=== PATIENT | male | born 1985 | race Caucasian/White ===

== ENCOUNTER 2025-02-16 11:25 | Emergency (ER) | payer BC, SELFPAY ==
--- NOTE | ~2025-02-16 | XR_ITS ---
EXAM/PROCEDURE: XR chest 2V - 02/16/2025 12:23 CDT HISTORY: 39 years old Male with cough, congestion; wheeze TECHNIQUE: Two view(s) of the chest. COMPARISON: None available. FINDINGS: LUNGS/ PLEURA: No focal consolidation. Mild perihilar bronchial wall thickening. Multiple bilateral s ubcentimeter pulmonary nodules seen. HEART/ MEDIASTINUM: Heart appears normal in size. BONES: No acute osseous abnormality. OTHER: Visualized upper abdomen is unremarkable. IMPRESSION: 1. No focal consolidation. Mild perihilar bronchial wall thickening, findings suggestive of respirat ory bronchiolitis. 2. Multiple bilateral subcentimeter nodules seen. These may represent granulomas. Correlate with raji or imaging if available otherwise routine outpatient CT chest can be performed for further evaluation as clinically indicated. Reviewed, dictated and finalized at location A. IMPRESSION: 1. No focal consolidation. Mild perihilar bronchial wall thickening, findings suggestive of respiratory bronchiolitis. 2. Multiple bilateral subcentimeter nodules seen. These may represent granulom as. Correlate with prior imaging if available otherwise routine outpatient CT c hest can be performed for further evaluation as clinically indicated.
--- OUTSIDE RECORDS SUMMARY | 2025-02-16 11:28 | XMS_ITS | Encounter Summary ---
Author Organization [facility] Address [address] [place] [address] Care Team Providers Care Game Manager Name Role Phone Zuly Bruner MD Primary Care Provider Edu Stover MD Unavailable [phone] Encounter Details Date Type Department Care Team (Late st Contact Info) Description 04/10/2021 Hospital Orders Only [facility] Anesthesia [address] [place] [address] [facility] Anesthesia Record Procedure Summary Procedure Name Responsible Anesthesiologist Anesthesia Start Time Anesthesia Stop Time XA A-FIB ABLATION Todd De Jesus MD 04/14/21 0704 04/14/21 0947 Events Date Time Event Comment 04/14/2021 0654 0654 AN Anesthesia Prepped 0704 An Start Patient ID and consent checked and patient reassessed. 0704 An Start Data 0708 Preoxygenation 0710 An Induction The patient was reevaluated immediately before moderate or deep sedation use and before anesthesia induction. 0714 An Intubation 0723 Anesthesia Ready 0826 Quick Note ACT 268 0839 Quick Note Act 290 0918 Quick Note ACT 301 0942 An Extubation 0946 an stop data 0947 Post Anesthetic Care Handoff I completed my handoff to the receiving nurse during which we: 1. Identified the patient 2. Identified the responsible provider 3. Reviewed the pertinent medical history 4. Discussed the surgical course 5. Reviewed intra-op anesthesia management and issues during anesthesia 6. Set expectations for post-procedure period 7. Allowed opportunity for questions and acknowledgement of understanding. 0947 An Stop Meds * Agents No agents on file. * Blood No blood administrations on file. Lines, Drains, and Airways Type Details Placement Removal Peripheral IV Placement Date: 06/27; Placement Time: 615; Placed Outside of This Facility?: No; Size: 18 G; Orientation: Left; Location: Antecubital; Site Prep: Alcohol; Local Anesthetic: None; Inserted By: jimy romero; Insertion attempts: 1; Ultrasound-guided Placement?: No; Patient Tolerance: Tolerated well; Removal Date: 04/15/21; Removal Time: 943; Removal Reason: Patient Discharged 04/14/21615 by Diane Abbott RN 04/15/21943 by Zuleima Meehan RN ETT Placement Date: 06/27; Placement Time: 714; Placed Outside of This Facility?:No; Mask Ventilate: Prior to intubation, Easy; Size (mm) : 7.5; Endotracheal: Oral, Stylet used; Blade Type: MAC 4; Placement Method: Direct Laryngoscopy (blade type in comment); View Grade: 1; Viewable Anatomy: Epiglottis, Arytenoid, Vocal cords; Insertion Attempts: 1; Placement Verified By: Capnography, Auscultation, Chest Rise; Placed By: Other (Comment) (paulino ryan); Removal Date: 04/14/21; Removal Time: 94104/14/21714 by Yana Mauricio CRNA 04/14/21941 by Yana Mauricio CRNA Peripheral IV Placement Date: 06/27; Placement Time: 721; Placed Outside of This Facility?: No; Size: 18 G; Orientation: Left; Location: Hand; Site Prep: Alcohol; Local Anesthetic: None; Inserted By: daniela; Insertion attempts: 1; Ultrasound-guided Placement?: No; Patient Tolerance: Tolerated well; Removal Date: 12/19/22; Removal Time: 02304/14/21721 by Yana Mauricio CRNA 12/19/22 023 by Automatic Discharge Provider Arterial Line Placement Date: 06/27; Placement Time: 723 (created via procedure documentation); Placed Outside of This Facility?: No; Size: 20; Orientation: Right; Location: Radial; Site Prep: Chlorhexidine; Local Anesthetic: None; Insertion Attempts: 2; Patient Tolerance: Tolerated well; Removal Date: 04/14/21; Removal Time: 1100; Removal Reason: Therapy Completed 04/14/21 0724 by Todd De Jesus MD 04/14/21 1100 by Nano Cunha RN documented in this encounter Social History Tobacco Use Types Packs/Day Years Used Date Smoking Tobacco: Never Smokeless Tobacco: Former Alcohol Use Standard Drinks/Week Comments Yes 0 (1 standard drink = 0.6 oz pur e alcohol) occasional use Sex and Gender Information Value Date Recorded Sex Assigned at Male 01/11/2023 3:38 PM GROUNDS/MAINTENANCE SPECIALIST Legal Sex Male 10:29 PM CDT Gender Identity Male 01/11/2023 3:38 PM GROUNDS/MAINTENANCE SPECIALIST Sexual Orientation Straight 01/11/2023 3: 38 PM GROUNDS/MAINTENANCE SPECIALIST COVID-19 Exposure Response Date Recorded In the last month, have you been in contact with someone who was confirmed or suspected to have Coronavirus / COVID-19? No / Unsure 04/13/2021 9:18 AM CDT documented as of this encounter Plan of Treatment Not on file documented as of this encounter Visit Diagnoses Not on filedocumented in this encounter Additional Health Concerns Infection Onset Date Last Indicated Resolved Time COVID-19 Rule Out 04/13/2021 04/13/2021 04/13/2021 11:20 PM CDT documented as of this encounter Care Teams Game Manager Relationship Specialty Start Date End Date Zuly Bruner MD [address] [place] [address] PCP - General FAMILY PRACTICE 11/11/19 Edu Stover MD [address] [place] [address] EP Japanese Tutor CLINICAL CARDIAC ELECTROPHYSIOLOGY 11/25/20 documented as of this encounter
--- OUTSIDE RECORDS SUMMARY | 2025-02-16 11:28 | XMS_ITS | Encounter Summary ---
Author Organization [facility] Address [address] [place] [address] Care Team Providers Care Bench Shear Operator Name Role Phone Zuly Bruner MD Primary Care Provider Edu Stover MD Unavailable [phone] Encounter Details Date Type Department Care Team (Late st Contact Info) Description 12/24/2020 Hospital Orders Only [facility] Anesthesia [address] [place] [address] [facility] Anesthesia Record Procedure Summary Procedure Name Responsible Anesthesiologist Anesthesia Start Time Anesthesia Stop Time XA SVT WPW ABLATION Octaviano Guzman MD 12/26/20 0728 1018 Events Date Time Event Comment 12/26/2020 0704 0704 AN Anesthesia Prepped 0728 An Start Patient ID and consent checked and patient reassessed. 0728 An Start Data 0730 Face Mask Applied 0733 Anesthesia Ready 1008 an stop data 1018 Post Anesthetic Care Handoff I completed my handoff to the receiving nurse during which we: 1. Identified the patient 2. Identified the responsible provider 3. Reviewed the pertinent medical history 4. Discussed the surgical course 5. Reviewed intra-op anesthesia management and issues during anesthesia 6. Set expectations for post-procedure period 7. Allowed opportunity for questions and acknowledgement of understanding. 1018 An Stop Meds * Agents No agents on file. * Blood No blood administrations on file. Lines, Drains, and Airways Type Details Placement Removal Peripheral IV Placement Date: 12/08 07/28; Placement Time: 0653; Placed Outside of This Facility?: No; Size: 18 G; Orientation: Right; Location: Antecubital; Site Prep: Chlorhexidine; Local Anesthetic: None; Insertion attempts: 1; Ultrasound-guided Placement?: No; Patient Tolerance: Tolerated well; Removal Date: 12/26/20; Removal Time: 1024 12/26/20 0653 by Cheryl Moreau RN 12/26/20 1024 by Shaniec Hanley RN documented in this encounter Social History Tobacco Use Types Packs/Day Years Used Date Smoking Tobacco: Never Smokeless Tobacco: Former Alcohol Use Standard Drinks/Week Comments Yes 0 (1 standard drink = 0.6 oz pur e alcohol) occasional use Sex and Gender Information Value Date Recorded Sex Assigned at Male 01/11/2023 3:38 PM LABORATORY ASST Legal Sex Male 10:29 PM CDT Gender Identity Male 01/11/2023 3:38 PM LABORATORY ASST Sexual Orientation Straight 01/11/2023 3: 38 PM LABORATORY ASST COVID-19 Exposure Response Date Recorded In the last month, have you been in contact with someone who was confirmed or suspected to have Coronavirus / COVID-19? No / Unsure 12/26/2020 6:14 AM LABORATORY ASST documented as of this encounter Plan of Treatment Not on file documented as of this encounter Visit Diagnoses Not on filedocumented in this encounter Additional Health Concerns Infection Onset Date Last Indicated Resolved Time COVID-19 Rule Out 04/13/2021 04/13/2021 04/13/2021 11:20 PM CDT documented as of this encounter Care Teams Bench Shear Operator Relationship Specialty Start Date End Date Zuly Bruner MD [address] [place] [address] PCP - General FAMILY PRACTICE 11/11/19 Edu Stover MD [address] [place] [address] EP Center Customer Service Associate CLINICAL CARDIAC ELECTROPHYSIOLOGY 11/25/20 documented as of this encounter
--- OUTSIDE RECORDS SUMMARY | 2025-02-16 11:28 | XMS_ITS | Data Portability ---
Author Organization [facility] Main Office Address [address] [place] [address] Assessment No assessment recorded. Plan of Treatment Reminders Order Date Submit Date Provider Last Modified By Organization Details Last Modified Time Details Appointments None recorded. Lab None recorded. Referral None recorded. Procedures injection/a spiration joint/bursa (PROC) - in office procedure, administere d by provider 2022 023 [email or web address] In-Office Order, Internal Use Only DO Not Attach Compendium DO Not Attach Compendium, Do Not Delete/merge, [address] 14:27:34 Surgeries None recorded. Imaging None recorded. Medication Orders Kenalog 10 mg/mL suspension for injection 2022 023 [email or web address] Not available 14:36:39 ropivacaine (PF) 5 mg/mL (0.5 %) injection solution 2022 023 [email or web address] Not available 14:36:39 Patient TargetsNo targets recorded. Patient InstructionsNo instructions recorded. Reason for Referral None Reported. Results Created Date Observation Date Name Description Value Unit Range Abnormal Flag Note LastModifiedBy Organization Detail LastModifiedTime 01/27/2001/21/2023 MRI, elbow , w/o contr ast No observ ation record ed. [email or web address] Not Available 01/06 14:11:20 01/27/20 23 12/17/2022 XR, elbow , 3 or more view No observ ation record ed. [email or web address] Not Available 01/06 14:11:20 Result Notes None recorded. Problems Name Problem SNOMED Code Status Onset Date Resolution Date Notes Provider Name and Address Organization Details Recorded Time Olecranon bursitis 448520669 Active Not Available [employer] 15:41:19 Pain of right elbow joint 3659690826680 9109 Active 2022 JUANITA Hinojosa, [employer] 14:26:24 Lateral epicondyli tis of right humerus 5550513411741 07 Active 2022 Dieter Jauregui MD [address] [facility], [facility] [address], [place], [address] , [employer] 14:47:09 Problem Notes None recorded. Procedures Surgical History Date Name Laterality Status Provider Name and Address Organization Details Recorded Time Ablation completed JUANITA Rodriguez [employer] 01/31/2023 14:08:14 Vasectomy completed JUANITA Hinojosa [employer] 01/31/2023 14:09:51 Imaging Results Imaging Date Name Status LastModified by Organiz ation Details LastModified Time 01/21/2023 MRI, elbow, w/o contrast completed Information not available 01/26/2023 14:11:20 12/17/2022 XR, elbow, 3 or more view completed Information not available 01/26/2023 14:11:20 Procedure Notes None recorded. Medical Equipment None Reported. Allergies No known drug allergies Medications Name Sig Start Date Stop Date Status Note LastModified by Organization Details LastModified Time prednisone 20 mg tablet TAKE 3 TABLETS BY MOUTH DAILY X 3 DAYS, 2 TABS X 3 DAYS, 1 TAB X 3 DAYS, 1/2 TAB X 4 DAYS 01/31 completed Not Available Not Available Not Available Kenalog 10 mg/mL suspension for injection Take 2 mL by injection route. [address] [facility]: 0003- [phone]- [phone] Not Available Not Available Not Available ropivacaine (PF) 5 mg/mL (0.5 %) injection solution Take 2 mL by injection route. [address] [facility] [phone] Not Available Not Available Not Available Vitals Date Recorded Body height Body mass index (BMI) Body weight Provider Name and Address Organization Details Last Updated DateTime 01/31/2023 185.42 cm 36.9 kg/m2 502772.86 g Iraida Norman, RMA [facility] 01/31/2023 14:07:21 Date Recorded Body height Body mass index (BMI) Body weight Provider Name and Address Organization Details Last Updated DateTime 04/12/2023 185.42 cm 36.3 kg/m2 154100.9 JUANITA Pratt [facility] [employer] [facility] 04/12/2023 13:46:12 Social History Question Answer Notes LastModified by Organizat ion Details LastModified Time Tobacco Smoking Status Unknown If Ever Smoked JUANITA Rodriguez [facility] [employer] [facility] 01/31/2023 14:07:49 What Is Your Level Of Alcohol Consumption? Moderate [email or web address] Information not available 01/31/2023 What Was The Date Of Your Most Recent Tobacco Screening? 01/31/2023 [email or web address] Information not available 01/31/2023 Sex: Unknown Functional Status None recorded. Mental Status None recorded. Family History Nothing Reported. Medical History Condition Response CARDIAC ARRHYTHMIA Y CANCER: SPECIFY Y Past Encounters Encounter ID Performer Location Encounter Start Date Encounter Closed Date Diagnosis/Indication Diagnosis SNOMED-CT Code Diagnosis ICD10 Code Diagnosis Note [id number] Dieter Jauregui MD [facility]_[address], [address] [place] [phone] 01/31/2023 14:00:17 01/31/2023 14:46:23 Pain of right elbow joint 0127495324 4281003 M25.521 Lateral ep icondylitis of right humerus 1253483404 72178 M77.11 discussed the different treatment options. We did a 1 time diagnostic injection with 2 cc xylocaine 2 cc Kenalog starting standard protocol needling the damaged tendon and then withdrawin g sebastian causey to inject the medication away from the tendon itself. We will have him work on avoidance of overuse as well as stretching and deep friction massage and see him in 7 or 8 weeks for follow-up. If no improvemen t the next step would be physical therapy as 90% of these patients will heal in a 6 month to a year. With conservati [place] interventi on [id number] [facility] Aramis Howard [address] [place] [address] 04/12/2023 13:44:10 04/12/2023 14:05:13 Pain of right elbow joint 3696415044 1892412 M25.521 38-year-ol d male returns to the clinic concerning the lateral epicondyli tis of the right elbow. After steroid injection and home exercise program he has had significan t improvemen t of his pain but over the last 2 weeks he has been excessivel y using a hammer and has developed some medial epicondyli tis. we discussed that this is similar overuse injury to lateral epicondyli tis and treated the same way. We discussed possible treatment options including and activity modificati on, corticoste roid injection, surgical debridemen t. since his work will begin to slow down and he will not be excessivel y using hammer any more he elected to proceed with activity modificati on and home exercise program that he has already been doing. I advised him to be consistent with forearm stretching , eccentric exercises, friction massage. He may use topical NSAIDs as needed for localized anti-infla mmatory. He will follow up as needed if symptoms persist or worsen. Lateral ep icondylitis of right humerus 7414007807 25725 M77.11 Health Concerns Section Related Observation LastModified by Organization Detai ls LastModified Time None Recorded Concern Status LastModified by Organization Details LastModified Time None Recorded Advance Directives Directive None Recorded Payers Encounter Date Sequence Insurance Name Policy Number Policy Perry Covered Member ID Perry Member ID Guarantor Name 01/31/2023 1 [place] [id number] Shantanu Bee [id number] BY [id number] Shantanu Bee 04/12/2023 1 [place] [id number] Shantanu Feliciano Rohit [id number] BY [id number] Shantanu Bee Notes Date Note Type Note Provider Name and Address Organization Details Recorded Time 01/31/2023 text/html Presents today f or evaluation of an interstitial tear within his common extensor tendon consistent with lateral epicondylitis he works swinging a heavy hammer and has developed a pretty significant tendinopathy in his right elbow is referred in today for evaluation very sharp pain at times his MRI scan showed a bit of edema at the attachment of the extensor carpi radialis brevis and little bit of partial tearing in the common extensor he does not have any numbing or tingling just significant pain at his elbow Dieter Jauregui MD [address] [address], [place], [address], [facility] [employer] Scheduling Employee Scheduling [employer] [facility] 01/31/2023 14:48:01 04/12/2023 text/html 38-year-old male returns to clinic concerning right elbow lateral epicondylitis. At his last visit he received a corticosteroid injection and advised to perform forearm stretches, eccentric exercises and friction massage. he states that he had significant improvement of his pain in the lateral elbow but notice within the last 2 weeks he has had some mild discomfort in the medial elbow over the medial epicondyle. he states that he has been using hammer pretty frequently during this project at work. [facility] [address], [facility] [address], [place], [address], Maintenance Assistant [facility] 04/12/2023 14:14:43
--- OUTSIDE RECORDS SUMMARY | 2025-02-16 11:28 | XMS_ITS | Clinical Summary ---
Author Organization [facility] Address [address] [facility] [place] [address] Care Team Providers Care Textile Artist Name Role Phone Zuly Bruner MD Primary Care Provider Source Comments [facility],non-owned Affiliates and Associated Physician Practices is amultiple site organization consisting of ambulatory clinics and hospital sitesin [place], [place], [place] and [place]. This disclosure is being madepursuant to the Care Everywhere program and may not contain all information available regarding this patient. Last updated 18.[facility] Allergies No known active allergies Medications * Be aware that medications may not be up to date on this document. Alwaysverify current medications with the patient. traZODone (DESYREL) 50 MG tablet 11/02/2021 Active dexAMETHasone (DECADRON) 6 MG tablet Take 6 mg by mouth once daily 12/05/2021 Active dilTIAZem coated beads 24hr (CARDIZEM CD) 120 MG capsule 07/12/2021 Acti ve Active Problems Problem Noted Date Diagnosed Date Arthralgia of wrist 01/08/2022 Chest pain on breathing 01/08/2022 Shortness of breath 01/08/2022 Health examination of defined subpopulation 02/2022 Overview (01/08/2022): See DD 2216E. 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 pt was advised to quit but denies cessation at this time Obesity 01/08/2022 Other tenosynovitis of hand and wrist 01/08/2022 Other viral warts 01/08/2022 Overweight 01/08/2022 Pain of finger 01/08/2022 Overview (01/08/2022): xrays reviewed personally w/ radiologist reveal slight cortical irregularity 1st distal MC. as pt is tender in this area will place in thumb spica and reeval in 1 wk, sooner w/ any problems. rest, ice, nsaids. also, pt noted to have chnages at 5th prox ph Plantar wart 01/08/2022 Pleurisy 01/08/2022 Symptom of diarrhea 01/08/2022 S/P ablation of atrial fibrillation 05/13/2021 Paroxysmal atrial fibrillation 02/27/2021 SVT (supraventricular tachycardia) 02/27/2021 Malignant melanoma of other part of trunk 2016 Resolved Problems Problem Noted Date Diagnosed Date Resolved Date Cough 01/08/2022 02/05/2022 Gastroenteritis 01/08/2022 01/22/2022 Family History Medical History Relation Name Comments Heart Disease Brother 1 Status: Alive None Known Brother 2 Status: Alive None Known Daughter Status: Alive Fibromyalgia Father Hypertension Father Status: Alive Parkinson's Disease Father Cancer Maternal Grandfather Status: Leukemia Maternal Grandfather Heart Disease Maternal Grandmother Status : None Known Mother Status: Alive Cancer - Colon Paternal Grandfather Statu s: None Known Paternal Grandmother Status: None Known Son Status: Alive Relation Name Status Comments Brother 1 Brother 2 Daughter Father Maternal Grandfather Maternal Grandmother Mother Paternal Grandfather Paternal Grandmother Son Social History Tobacco Use Types Packs/Day Years Used Date Smoking Tobacco: Never Smokeless Tobacco: Former Chew Quit: 2018 Tobacco Cessation:Counseling Given: No Alcohol Use Standard Drinks/Week Comments Yes 1 (1 standard drink = 0.6 oz pur e alcohol) Sex and Gender Information Value Date Recorded Sex Assigned at Not on file Legal Sex Male 5:28 PM TASSEL MAKER Gender Identity Not on file Sexual Orientation Not on file Last Filed Vital Signs Vital Sign Reading Time Taken Comments Blood Pressure 133/87 10/11/2022 12:44 PM TASSEL MAKER Pulse 81 10/11/2022 12:44 PM TASSEL MAKER Temperature 37.1 C (98.7 F) 10/11/2022 12:44 PM TASSEL MAKER Respiratory Rate 18 10/11/2022 12:4 4 PM TASSEL MAKER Oxygen Saturation 98% 10/11/2022 12: 44 PM TASSEL MAKER Inhaled Oxygen Concentration - - Weight 121.8 kg (268 lb 9.6 oz) 022 12:44 PM TASSEL MAKER Height 185.4 cm (6' 1 ) 10/11/2022 12:4 4 PM TASSEL MAKER Body Mass Index 35.44 10/11/2022 12:44 PM TASSEL MAKER Plan of Treatment Health Maintenance Due Date Last Done Comments HIV SCREENING 2000 HEPATITIS C SCREENING 04/05/2003 DTAP/TDAP/TD VACCINES (1 - Tdap) 2004 HEPATITIS B VACCINE (1 of 3 - 19+ 3-dose series) 2004 COVID-19 VACCINE ( - season) 2024 DEPRESSION SCREENING 11/07/2024 INFLUENZA VACCINE (Season Ended) 2025 11/11/2020, 08/25/2019, 09/01/2018, Additional history exists ZOSTER VACCINE (1 of 2) 2035 HIB VACCINE Aged Out No longer eligi ble based on patient's age to complete this topic HPV VACCINE Aged Out No longer eligi ble based on patient's age to complete this topic MENINGOCOCCAL (Group B) VACCINE SHARED DECISION-MAKING Aged Out No longer eligible based on patient's age to complete this topic MENINGOCOCCAL GROUPS A/C/Y/W VACCINE Aged Out No longer eligible based on patient's age to complete this topic PNEUMOCOCCAL VACCINE Aged Out No long er eligible based on patient's age to complete this topic Insurance [employer] Care Teams Textile Artist Relationship Specialty Start Date End Date Zuly Bruner MD [address] [place] [address] PCP - General 11/29/16
--- OUTSIDE RECORDS SUMMARY | 2025-02-16 11:28 | XMS_ITS | Clinical Summary ---
Author Organization [facility] Address [address] [place] [address] Care Team Providers Care Epilepsy Physician Name Role Phone Zuly Bruner MD Primary Care Provider Edu Stover MD Unavailable [phone] Allergies No known active allergies Medications No known medications Active Problems Problem Noted Date Diagnosed Date S/P ablation of atrial fibrillation 05/13/2021 SVT (supraventricular tachycardia) ([facility]) Paroxysmal atrial fibrillation ([facility]) 02/27/2021 Immunizations Name Administration Dates Next Due Dtp 08/08/1990,02/14/1987,01/24/1986 ,1985,1985 Hepatitis B 01/12/2001,08/25/2000,07/14/2000 Influenza (Generic) 11/11/2020,08/25/2019,2017,08/18/2017 MMR 08/04/1993,07/22/1986 Opv 08/08/1990,02/14/1987,01/24/1986 ,1985,1985 Td 07/14/2000 Tdap (Adacel) 01/17/2020 Tdap (Boostrix) 11/03/2024(Deferred: - january 0 per record) Family History Medical History Relation Comments Hypertension Father Relation Status Comments Father Social History Tobacco Use Types Packs/Day Years Used Date Smoking Tobacco: Never Smokeless Tobacco: Former Alcohol Use Standard Drinks/Week Comments Yes 0 (1 standard drink = 0.6 oz pur e alcohol) occasional use Sex and Gender Information Value Date Recorded Sex Assigned at Male 01/11/2023 3:38 PM FILLER BLENDER Legal Sex Male 10:29 PM CDT Gender Identity Male 01/11/2023 3:38 PM FILLER BLENDER Sexual Orientation Straight 01/11/2023 3: 38 PM FILLER BLENDER Last Filed Vital Signs Vital Sign Reading Time Taken Comments Blood Pressure 137/95 11/03/2024 2:13 PM FILLER BLENDER Pulse 81 11/03/2024 2:13 PM FILLER BLENDER Temperature 36.6 C (97.8 F) 11/03/2024 2:13 PM FILLER BLENDER Respiratory Rate 18 11/03/2024 2:13 PM FILLER BLENDER Oxygen Saturation 98% 11/03/2024 2:13 PM FILLER BLENDER Inhaled Oxygen Concentration - - Weight 127 kg (280 lb) 11/03/2024 2:13 PM FILLER BLENDER Height 185.4 cm (6' 1 ) 11/03/2024 2:13 PM FILLER BLENDER Body Mass Index 36.94 11/03/2024 2:13 PM FILLER BLENDER Plan of Treatment Health Maintenance Due Date Last Done Comments Annual Physical 1988 Hepatitis C 2003 COVID-19 Vaccine ( season) 2024 DTaP, Tdap and Td Vaccines (3 - Td or Tdap) 01/16/2030 01/17/2020, 07/14/2000, 08/08/1990, Additional history exists Hepatitis B Vaccines Completed 01/12/2001, 08/25/2000, 07/14/2000 HPV Vaccines Aged Out No longer eligi ble based on patient's age to complete this topic Meningococcal B Vaccine Aged Out No l onger eligible based on patient's age to complete this topic Meningococcal Vaccine Aged Out No dimitrios simi eligible based on patient's age to complete this topic Pneumococcal Vaccine: Pediatrics (0 to 5 Years) and At-Risk Patients (6 to 64 Years) Aged Out No longer eligible based on patient's age to complete this topic RSV Immunizations Under 20 Months Aged Out No longer eligible based on patient's age to complete this topic [place] [address] [place] [address] Advance Directives * Full Code (Latest Code Status on File) Date Activated Date Inactivated Comments 04/14/2021 10:32 AM 04/15/2021 12:52 PM * Full Code Date Activated Date Inactivated Comments 12/26/2020 10:24 AM 12/26/2020 3:00 PM Care Teams Epilepsy Physician Relationship Specialty Start Date End Date Zuly Bruner MD [address] [place] [id number] PCP - General FAMILY PRACTICE 11/11/19 Edu Stover MD [address] [place] [address] EP Car Conditioner CLINICAL CARDIAC ELECTROPHYSIOLOGY 11/25/20
[2025-02-16 11:34] VITALS: O2SAT 100
[2025-02-16 11:36] VITALS: BP 150/93; PULSE 82; RESP 21; TEMP 36.4; O2SAT 100
--- NOTE | 2025-02-16 11:37 | ED_ITS ---
HPI - SOB/Dyspnea General Chief Complaint: Shortness of Breath/Dyspnea Stated Complaint: PNEUMONIA LOW O2 SATS Time Seen by Provider: 02/16/25 11:32 Source: patient and family Mode of arrival: ambulatory Limitations: no limitations History of Present Illness HPI Narrative: Patient presents with report of shortness of breath. He has had a cough and congestion. The cough was productive at 1st, to the point where he felt like he was gagging but not now. States he had a slight fever Tuesday night into morning at highest temp was 99.6?. He saw someone in his primary care physician office on 02/12/25 who based on auscultation, diagnosed with pneumonia and prescribed azithromycin calm a Augmentin topical steroids. No swab or chest x-ray was done. He states his oxygen saturation on a finger pulse oximeter today was between 88 and 92%. He has albuterol nebulizer at home which she tried at 1 point he had also been prescribed inhaler and so has that at home as well. He feels like he is getting worse. He does not smoke and has no underlying respiratory conditions. He is having chest pain after the cough but describes diffuse myalgias. Related Data Home Medications ?Medication ?Instructions ?Recorded ?Confirmed ?Last Taken ?Type azithromycin 250 mg tablet mg 02/16/25 02/16/25 History prednisone 20 mg tablet mg 02/16/25 02/16/25 History Allergies Allergy/AdvReac Type Severity Reaction Status Date / Time No Known Allergies [facility]16[facility]25 [facility] Social History Social History Smoking status: Never smoker Exam 2 Narrative: GENERAL: Well-appearing, well-nourished, and in no acute distress. HEAD: Normocephalic, atraumatic. EYES: Non injected, non icteric ENT: Nares clear, no rhinorrhea or epistaxis. NECK: Supple. CHEST: Speaking in full sentences. No respiratory distress. Nonlabored. Patient does have bilateral expiratory wheezes. HEART: Regular rate and rhythm. . ABDOMEN: Soft, nondistended. EXTREMITIES: Normal range of motion. No bilateral lower extremity edema. SKIN: Warm, dry, no rash. NEURO: No focal deficits. Alert and oriented x3. PSYCH: Normal mood and affect. Course Vital Signs Vital signs: Vital Signs Pulse Oximetry 100 02/16/25 11:34 Oxygen Delivery Room Air 02/16/25 11:34 Temperature 97.6 F 02/16/25 11:36 Pulse Rate 84 02/16/25 12:03 Respiratory Rate 20 02/16/25 12:03 Blood Pressure 150/93 H 02/16/25 11:36 Pulse Oximetry 100 02/16/25 11:36 Oxygen Delivery Room Air 02/16/25 11:34 MDM - SOB/Dyspnea MDM Narrative Medical decision making narrative: Patient presents with shortness of breath as well as a cough congestion. The cough is productive at 1st but not so much anymore. He was diagnosed with pneumonia on 02/22/2025 through his primary care provider's office son auscultated his lines prescribed him Augmentin and azithromycin as well as steroids. No swab or chest x-ray was performed. No underlying respiratory conditions although he had previously been prescribed albuterol to use p.r.n. he is concerned because his SpO2 on a finger pulse ox at home was between 88 and 92% today In the emergency department he is afebrile vital signs notable for very mild tachypnea as well as hypertension. Notably, not tachycardic or hypoxic. Tessalon Perles for cough and albuterol for wheezes are ordered. Viral swab negative. Patient becomes dyspneic but does not desaturate during his walking pulse ox. Discharged with Rx for symptomatic treatment and advised f/u with PCP. Differential Diagnosis Differential diagnosis: Likely community acquired pneumonia, asthma with exacerbation and other (Bronchitis, acute viral syndrome) Lab Data Attestation: I reviewed the patient's lab results. Lab results narrative: No anemia, thrombocytopenia, leukocytosis. 02/16/25 11:45 02/16/25 11:45 Labs: Lab Results 02/16/25 Range/Units 11:45 WBC 5.7 (4.5-10.0) K/mm3 RBC 5.55 (4.6-6.20) M/mm3 Hgb 16.1 (14.0-18.0) g/dL Hct 49.1 (42.0-52.0) % MCV 88.5 (80-100) fl MCH 29.0 (26-34) pg MCHC 32.8 (32-36) g/dl RDW 13.1 (11.5-14.5) % Plt Count 237 (150-375) k/mm3 MPV 9.0 (7.4-10.4) fl Immature Gran % (Auto) 0.7 H (0-0.5) % Neut % (Auto) 73.9 H (45.5-73.1) % Lymph % (Auto) 19.9 (18.3-44.2) % [place] % (Auto) 4.6 (2.6-8.5) % Eos % (Auto) 0.5 (0-4.4) % Baso % (Auto) 0.4 (0.2-1.2) % Lymph # (Auto) 1.13 (0.9-3.2) K/mm3 [place] # (Auto) 0.3 (0.1-0.6) K/mm3 Eos # (Auto) 0.0 (0-0.3) K/mm3 Baso # (Auto) 0.0 (0.0-0.1) K/mm3 Abs Immat Gran (auto) 0.04 H (0.00-0.031) K/mm3 Absolute Neuts (auto) 4.2 (1.3-6.7) K/mm3 Absolute Nucleated RBC 0.000 (0.0-0.012) K/mm3 Nucleated RBC % 0.0 (0.0-0.2) % Sodium 143 (137-145) mmol/L Potassium 3.6 (3.4-5.0) mmol/L Chloride 107 (98-107) mmol/L Carbon Dioxide 21 L (22-30) mmol/L Anion Gap 15 H (4-12) mmol/L BUN 17 (9-20) mg/dL Creatinine 1.05 (0.7-1.3) mg/dL Estim Creat Clear Calc 116 ml/min Estimated GFR > 60 (59 - ) Glucose 137 H (65-110) mg/dL Calcium 9.4 (8.4-10.2) mg/dL Influenza A (RT-PCR) Negative (Negative) Influenza B (RT-PCR) Negative (Negative) RSV (RT-PCR) Negative (Negative) SARS-CoV-2 RNA (RT-PCR) Negative (Negative) Imaging Data Radiologist's impression: Impressions Chest X-Ray 02/16/25 12:32 IMPRESSION: 1. No focal consolidation. Mild perihilar bronchial wall thickening, findings suggestive of respiratory bronchiolitis. 2. Multiple bilateral subcentimeter nodules seen. These may represent granulomas. Correlate with prior imaging if available otherwise routine outpatient CT chest can be performed for further evaluation as clinically indicated. ECG Data EKG #1: Attestation: I personally reviewed and interpreted this ECG as follows: ECG completion date: 02/16/25 ECG completion time: 11:53 Interpretation: Normal sinus rhythm at a rate of 74 beats minute. IN interval 145. QRS 1 5. QT/QTC 341/369. Good R-wave progression across the precordial leads. No T-wave inversions. Normal ECG. Discharge Plan Discharge Clinical Impression: Bronchiolitis, Bronchitis, Wheeze Patient Disposition: Home Condition: Stable Instructions: Antibiotic Form, Bronchiolitis (ED), Acute Bronchitis (ED), Wheezing (ED) Additional Instructions: You have bronchitis/bronchiolitis. Usually this is viral (though you tested negative for COVID, influenza a, influenza B, and RSV) and would not require antibiotics although you are ready prescribed these by your primary care provider so can continue to take if desired. Typically steroids are not indicated either but you were already prescribed these by your primary care provider and can continue to take if desired. You can continue to use the albuterol given that you did have evidence of some wheezes on exam. Multiple bilateral subcentimeter nodules seen on your CXR. These may represent granulomas. Correlate with prior imaging if available otherwise routine outpatient CT chest can be performed for further evaluation as clinically indicated. Your PCP can help arrange this. You can use the prescribed medications to supplement and help with your symptoms. Rest and maintain your hydration. You are being provided work note. Follow-up with primary care provider. Return to the emergency department with any new or worsening symptoms Patient Language: German Prescriptions: New benzonatate 100 mg capsule 100 mg PO BID PRN (Reason: cough) Qty: 20 0RF Cepacol Sore Throat-Cough 5-7.5 mg lozenge 1 nova PO Q4H PRN (Reason: cough) Qty: 16 0RF No Action azithromycin 250 mg tablet prednisone 20 mg tablet Follow-up/Referrals: Zuly Bruner MD [Primary Care Provider] - Stand Alone Forms: Work/School Release IP Time of Disposition: 12:52
--- NOTE | 2025-02-16 11:45 | ECG_ITS ---
Test Date: 2025-02-16 11:53:56 Measurements Intervals [place] Rate: 74 P: 54 CT: 145 QRS: 12 QRSD: 105 T: 55 QT: 341 QTc: 381 Interpretive Statements SINUS RHYTHM NORMAL ECG No previous ECG available for comparison Electronically Signed On 02-16-2025 14:39:13 CDT by Bobby Epperson D.O.
[2025-02-16 11:52] LABS: Basophils Percent Auto 0.4 % (0.2-1.2); Eosinophils Percent Auto 0.5 % (0-4.4); Hematocrit 49.1 % (42.0-52.0); Hemoglobin 16.1 g/dL (14.0-18.0); Immature Granulocyte Absolute 0.04 K/mm3 (0.00-0.031); Immature Granulocyte Percent A 0.7 % (0-0.5); Lymphocytes Absolute Auto 1.13 K/mm3 (0.9-3.2); Lymphocytes Percent Auto 19.9 % (18.3-44.2); Mean Corpuscular HGB Conc 32.8 g/dl (32-36); Mean Corpuscular Volume 88.5 fl (80-100); Monocytes Absolute Auto 0.3 K/mm3 (0.1-0.6); Monocytes Percent Auto 4.6 % (2.6-8.5); Neutrophils Absolute Auto 4.2 K/mm3 (1.3-6.7); Neutrophils Percent Auto 73.9 % (45.5-73.1); Platelet Count Result 237 k/mm3 (150-375); Red Blood Count 5.55 M/mm3 (4.6-6.20); Red Cell Distribution Width 13.1 % (11.5-14.5); White Blood Count 5.7 K/mm3 (4.5-10.0)
[2025-02-16] MEDS: ALBUTEROL SULFATE NEB 2.5 MG/3 ML INH INHALATION (11:53)
[2025-02-16 11:55] VITALS: PULSE 76; RESP 18
[2025-02-16 12:01] LABS: Anion Gap 15 mmol/L (4-12); Blood Urea Nitrogen 17 mg/dL (9-20); Calcium 9.4 mg/dL (8.4-10.2); Carbon Dioxide 21 mmol/L (22-30); Chloride 107 mmol/L (98-107); Estimated CRCL calculation 116 ml/min; Estimated Glomerular Filt Rate > 60; Glucose 137 mg/dL (65-110); Potassium 3.6 mmol/L (3.4-5.0); Sodium 143 mmol/L (137-145)
[2025-02-16] MEDS: BENZONATATE 100 MG CAPSULE PO (12:02)
[2025-02-16 12:03] VITALS: PULSE 84; RESP 20
--- OUTSIDE RECORDS SUMMARY | 2025-02-16 12:17 | XMS_ITS | Encounter Summary ---
Author Organization [facility] Address [address] [place] [address] Care Team Providers Care Community Mental Health Worker Name Role Phone Zuly Bruner MD Primary Care Provider Edu Stover MD Unavailable [phone] Encounter Details Date Type Department Care Team (Late st Contact Info) Description 12/24/2020 Hospital Orders Only [facility] Anesthesia [address] [place] [address] [facility] Anesthesia Record Procedure Summary Procedure [...] by Cheryl Moreau RN 12/26/20 1024 by Shanice Hanley RN documented in this encounter Social History Tobacco Use Types Packs/Day Years Used Date Smoking Tobacco: Never Smokeless Tobacco: Former Alcohol Use Standard Drinks/Week Comments Yes 0 (1 standard drink = 0.6 oz pur e alcohol) occasional use Sex and Gender Information Value Date Recorded Sex Assigned at Male 01/11/2023 3:38 PM TEAROOM HOSTESS Legal Sex Male 10:29 PM CDT Gender Identity Male 01/11/2023 3:38 PM TEAROOM HOSTESS Sexual Orientation Straight 01/11/2023 3: 38 PM TEAROOM HOSTESS COVID-19 Exposure Response Date Recorded In the last month, have you been in contact with someone who was confirmed or suspected to have Coronavirus / COVID-19? No / Unsure 12/26/2020 6:14 AM TEAROOM HOSTESS documented as of this encounter Plan of Treatment Not on file documented as of this encounter Visit Diagnoses Not on filedocumented in this encounter Additional Health Concerns Infection Onset Date Last Indicated Resolved Time COVID-19 Rule Out 04/13/2021 04/13/2021 04/13/2021 11:20 PM CDT documented as of this encounter Care Teams Community Mental Health Worker Relationship Specialty Start Date End Date Zuly Bruner MD [address] [place] [address] PCP - General FAMILY PRACTICE 11/11/19 Edu Stover MD [address] [place] [address] EP Label Stitcher CLINICAL CARDIAC ELECTROPHYSIOLOGY 11/25/20 documented as of this encounter
--- OUTSIDE RECORDS SUMMARY | 2025-02-16 12:17 | XMS_ITS | Clinical Summary ---
Author Organization [facility] Address [address] [place] [address] Care Team Providers Care Weir Fisherman Name Role Phone Zuly Bruner MD Primary Care Provider Edu Stover MD Unavailable Allergies No known active allergies Medications No known medications Active Problems Problem Noted Date Diagnosed Date S/P ablation of atrial fibrillation 05/13/2021 SVT (supraventricular tachycardia) ([facility]) Paroxysmal atrial fibrillation ([facility]) 02/27/2021 Immunizations Name Administration Dates Next Due [...] Sex Assigned at Male 01/11/2023 3:38 PM POT TENDER Legal Sex Male 10:29 PM CDT Gender Identity Male 01/11/2023 3:38 PM POT TENDER Sexual Orientation Straight 01/11/2023 3: 38 PM POT TENDER Last Filed Vital Signs Vital Sign Reading Time Taken Comments Blood Pressure 137/95 11/03/2024 2:13 PM POT TENDER Pulse 81 11/03/2024 2:13 PM POT TENDER Temperature 36.6 C (97.8 F) 11/03/2024 2:13 PM POT TENDER Respiratory Rate 18 11/03/2024 2:13 PM POT TENDER Oxygen Saturation 98% 11/03/2024 2:13 PM POT TENDER Inhaled Oxygen Concentration - - Weight 127 kg (280 lb) 11/03/2024 2:13 PM POT TENDER Height 185.4 cm (6' 1 ) 11/03/2024 2:13 PM POT TENDER Body Mass Index 36.94 11/03/2024 2:13 PM POT TENDER Plan of Treatment Health Maintenance Due Date [...] patient's age to complete this topic [place] [address] [place] [id number] Advance Directives * Full Code (Latest Code Status on File) Date Activated Date Inactivated Comments 04/14/2021 10:32 AM 04/15/2021 12:52 PM * Full Code Date Activated Date Inactivated Comments 12/26/2020 10:24 AM 12/26/2020 3:00 PM Care Teams Weir Fisherman Relationship Specialty Start Date End Date Zuly Bruner MD [address] [place] [address] PCP - General FAMILY PRACTICE 11/11/19 Edu Stover MD [address] [place] [address] EP Tenant Relations Coordinator CLINICAL CARDIAC ELECTROPHYSIOLOGY 11/25/20
--- OUTSIDE RECORDS SUMMARY | 2025-02-16 12:17 | XMS_ITS | Encounter Summary ---
Author Organization [facility] Address [address] [place] [address] Care Team Providers Care Fashion Director Party Plan Sales Name Role Phone Zuly Bruner MD Primary Care Provider Edu Stover MD Unavailable [phone] Encounter Details Date Type Department Care Team (Late st Contact Info) Description 04/10/2021 Hospital Orders Only [facility] Anesthesia [address] [place] [address] [facility] Anesthesia Record Procedure Summary Procedure [...] Removal Date: 04/14/21; Removal Time: [id number]/14/[id number] by aYna Mauricio CRNA 04/14/21941 by Yana Mauricio CRNA [...] Sex Assigned at Male 01/11/2023 3:38 PM ESTATE TAX EXAMINER Legal Sex Male 10:29 PM CDT Gender Identity Male 01/11/2023 3:38 PM ESTATE TAX EXAMINER Sexual Orientation Straight 01/11/2023 3: 38 PM ESTATE TAX EXAMINER COVID-19 Exposure Response Date Recorded In the [...] documented as of this encounter Care Teams Fashion Director Party Plan Sales Relationship Specialty Start Date End Date Zuly Bruner MD [address] [place] [address] PCP - General FAMILY PRACTICE 11/11/19 Edu Stover MD [address] [place] [address] EP Cloth Calender CLINICAL CARDIAC ELECTROPHYSIOLOGY 11/25/20 documented as of this encounter
--- OUTSIDE RECORDS SUMMARY | 2025-02-16 12:17 | XMS_ITS | Clinical Summary ---
Author Organization [facility] Address [address] [place] [address] Care Team Providers Care Foil Wrapper Name Role Phone Zuly Bruner MD Primary Care Provider Source Comments [facility],non-owned Affiliates and Associated Physician Practices is amultiple site organization consisting of ambulatory clinics and hospital sitesin [place], [place], [place] and [place]. This disclosure is being madepursuant to the Care Everywhere program and may not contain all information available regarding this patient. Last updated 18.[facility] Allergies No known active allergies Medications * [...] on file Legal Sex Male 5:28 PM TEAM LEADER SURGERY Gender Identity Not on file Sexual Orientation Not on file Last Filed Vital Signs Vital Sign Reading Time Taken Comments Blood Pressure 133/87 10/11/2022 12:44 PM TEAM LEADER SURGERY Pulse 81 10/11/2022 12:44 PM TEAM LEADER SURGERY Temperature 37.1 C (98.7 F) 10/11/2022 12:44 PM TEAM LEADER SURGERY Respiratory Rate 18 10/11/2022 12:4 4 PM TEAM LEADER SURGERY Oxygen Saturation 98% 10/11/2022 12: 44 PM TEAM LEADER SURGERY Inhaled Oxygen Concentration - - Weight 121.8 kg (268 lb 9.6 oz) 022 12:44 PM TEAM LEADER SURGERY Height 185.4 cm (6' 1 ) 10/11/2022 12:4 4 PM TEAM LEADER SURGERY Body Mass Index 35.44 10/11/2022 12:44 PM TEAM LEADER SURGERY Plan of Treatment Health Maintenance Due Date [...] this topic Insurance [employer] Care Teams Foil Wrapper Relationship Specialty Start Date End Date Zuly Bruner MD [address] [place] [address] PCP - General 11/29/16
[2025-02-16 12:31] LABS: Influenza A QL RT-PCR Negative (Negative); Influenza B QL RT-PCR Negative (Negative); RSV RNA, RT-PCR Negative (Negative); SARS-CoV-2 RNA PCR Negative (Negative)
--- NOTE | 2025-02-16 12:47 | PC.NURSE ---
Patient maintained room air O2 saturation (96-98%) while ambulating around nurses station. Patient c/o dyspnea and feeling like crap during assessment. EDP made aware.
== END 2025-02-16 13:01 | disposition home or self-care (01) ==
PROVIDERS: Emergency Provider Student in an Organized Health Care Education/Training Program; PCP Family Medicine
DX: J21.9 Acute bronchiolitis, unspecified (principal); J40 Bronchitis, not specified as acute or chronic; Z20.822 Contact with and (suspected) exposure to COVID-19
CPT/HCPCS: 36415; 71046; 80048; 85025; 87637; 93005; 94640; 99283; A9270